=== PATIENT | male | born 1995 | race Caucasian/White ===

== ENCOUNTER 2019-04-16 15:14 | Emergency (ER) | payer MEDICAID, OTHER ==
[~2019-04-16] VITALS: Ht 193 cm; Wt 115.9 kg
[~2019-04-16 15:14] MED LIST: CYCL-1 PO
[2019-04-16 15:38] VITALS: BP 129/67
[2019-04-16] MEDS ORDERED: LIDOcaine 5% patch TP STA (16:13)
[2019-04-16] MEDS ORDERED: ketorolac tromethamine 15mg/ml inj. IM ONE (16:15)
[2019-04-16] MEDS ORDERED: CYCL-1 PO (16:19)
== END 2019-04-16 16:39 | disposition home or self-care (01) ==
LOC: ER 15:14
DX: M54.5 Low back pain (principal); Z88.1 Allergy status to other antibiotic agents; Z79.899 Other long term (current) drug therapy
CPT/HCPCS: 96372; 99283; J1885

== ENCOUNTER 2019-11-11 19:22 | Emergency (ER) | payer MEDICAID ==
[~2019-11-11] VITALS: Ht 190.5 cm; Wt 123.6 kg
[2019-11-11 19:37] VITALS: BP 125/90
[2019-11-11] MEDS ORDERED: HYDROcodone/acetaminophen 5mg/325mg tablet PO ONE (21:10)
[2019-11-11] MEDS ORDERED: IBUP-1985 PO (21:25)
[2019-11-11] MEDS ORDERED: CHLO473M3 PO (21:25)
[2019-11-11] MEDS ORDERED: ACET-2144 PO (21:25)
[2019-11-11] MEDS ORDERED: L. R1CAP4 PO (21:25)
[2019-11-11] MEDS ORDERED: AMOX-580 PO (21:25)
== END 2019-11-11 21:51 | disposition home or self-care (01) ==
LOC: ER 19:23
DX: K08.89 Other specified disorders of teeth and supporting structures (principal); Z88.1 Allergy status to other antibiotic agents; Z79.2 Long term (current) use of antibiotics; Z79.899 Other long term (current) drug therapy
CPT/HCPCS: 99283

== ENCOUNTER 2023-11-01 20:13 | Emergency (ER) | payer MEDICAID ==
[~2023-11-01] VITALS: Ht 193 cm; Wt 128.3 kg
[~2023-11-01 20:13] MED LIST changes: +CHLO473M3 PO; +IBUP-1985 PO; +L. R1CAP4 PO
[2023-11-01] MEDS ORDERED: CIPR2.5D21 LEFTEYE (21:47)
[2023-11-01 22:15] VITALS: BP 152/83; PULSE 86; RESP 16; TEMP 98; O2SAT 98
== END 2023-11-01 22:17 | disposition home or self-care (01) ==
LOC: ER 20:15
DX: T15.92XA Foreign body on external eye, part unspecified, left eye, initial encounter (principal); Z79.899 Other long term (current) drug therapy; Z88.1 Allergy status to other antibiotic agents; Z88.8 Allergy status to other drugs, medicaments and biological substances; X58.XXXA Exposure to other specified factors, initial encounter; Y93.89 Activity, other specified; Y92.89 Other specified places as the place of occurrence of the external cause; Y99.8 Other external cause status
CPT/HCPCS: 99283